=== PATIENT | male | born 1970 | race African-American/Black ===

== ENCOUNTER 2016-11-19 09:46 | Emergency (ER) | payer SELFPAY ==
[~2016-11-19] VITALS: Ht 175.3 cm; Wt 72.6 kg
[2016-11-19 10:59] VITALS: BP 122/65
== END 2016-11-19 10:59 | disposition home or self-care (01) ==
LOC: ER 09:51
DX: L02.414 Cutaneous abscess of left upper limb (principal); L02.413 Cutaneous abscess of right upper limb; Z59.0 Homelessness
CPT/HCPCS: 99283; A4606; A6402; Z7610